=== PATIENT | male | born 1965 ===

== ENCOUNTER 2018-03-30 13:27 | Inpatient (IN) | payer OTHER ==
--- NOTE | 2018-03-30 16:02 | ED PDOC ---
Arrival/HPI - General Chief Complaint: Alcohol Ingestion Time Seen by Provider: 03/30/18 14:33 Historian: Patient - History of Present Illness Narrative History of Present Illness (Text): 03/30/18 15:15 A 47 year old Davey Macias, with unknown past medical history, brought by EMS to the emergency department for public intoxication. Limited HPI, ROS, and PE due to patient's intoxicated mental state. Past Medical History - Provider Review Nursing Documentation Reviewed: Yes - Infectious Disease Hx of Infectious Diseases: None - Psychiatric Hx Substance Use: No - Anesthesia Hx Anesthesia: No Family/Social History - Physician Review Nursing Documentation Reviewed: Yes Family/Social History: Unknown Family HX Smoking Status: Unknown If Ever Smoked Hx Alcohol Use: Yes Hx Substance Use: No Allergies/Home Meds Allergies/Adverse Reactions: Allergies Unobtainable Allergy (Verified 03/30/18 13:43) Review of Systems - Review of Systems Systems not reviewed;Unavailable: Intoxicated Physical Exam - Physical Exam Physical Exam Limitations: Intoxication Vital Signs Reviewed: Yes Vital Signs Temp Pulse Resp BP Pulse Ox 03/30/18 18:26 114 H 18 156/103 H 95 03/30/18 13:27 98.9 F 89 18 155/94 H 92 L Temperature: Afebrile Blood Pressure: Normal Pulse: Regular Respiratory Rate: Normal Appearance: Positive for: Other (intoxicated) Pain Distress: None Medical Decision Making ED Course and Treatment: 03/30/18 15:16 Impression: 47 year old male with intoxication. Plan: -- EKG -- Labs -- Fingerstick -- Geodon -- Reassess and disposition Progress Notes: 03/30/18 20:17 re-eval, patient is awake and alert, able to ambulate back and forth to the bathroom without assitance, is still clinically intoxicated, does not have any tremor. will continue to observe clinically 03/30/18 21:42 family/ at bedside ([phone]), reports that the patient is a chronic alcoholic and has been binge drinking, has a hx of htn and high blood sugar, she reports that the patient has hx of alcohol withdrawal. It is also noted, that the patient has become hypertensive and tachycardic during Ed course which raises the suspicion for alcohol withdrawal. 03/30/18 21:45 03/30/18 22:39 CIWA score approx 10 03/30/18 22:59 admit accepted by hospitalistm dr. carlson, patient to be admitted for alcoholwithdrawal, patient does not exhibit severe signs of withdrawal and appears stable for non-critical bed. - Lab Interpretations Lab Results: 03/30/18 21:55 03/30/18 21:55 Lab Results 03/30/18 21:55: Sodium 152 H, Chloride 105, Potassium 4.1, Carbon Dioxide 29, Anion Gap 22 H, BUN 8, Creatinine 0.7 L, Est GFR ( Amer) > 60, Est GFR ( Non-Af Amer) > 60, Random Glucose 117 H, Calcium 8.8, Magnesium 2.2, Total Bilirubin 0.4, AST 37, ALT 33, Alkaline Phosphatase 65, Total Protein 8.2, Albumin 4.9 H, Globulin 3.4, Albumin/Globulin Ratio 1.4 03/30/18 21:55: pO2 26 L, VBG pH 7.35, VBG pCO2 57.0, VBG HCO3 31.5 H, VBG Total CO2 33.2 H, VBG O2 Sat (Calc) 45.3, VBG Base Excess 4.3 H, VBG Potassium 3.9, Sodium 148.0, Chloride 105.0, Glucose 115 H, Lactate 3.7 H, FiO2 21.0, Venous Blood Potassium 3.9 03/30/18 21:55: WBC 6.2, RBC 5.71, Hgb 17.6, Hct 50.2, MCV 87.9, MCH 30.8, MCHC 35.1, RDW 14.4, Plt Count 215, MPV 8.6, Gran % 43.7 L, Lymph % (Auto) 49.4 H, [place] % (Auto) 5.8, Eos % (Auto) 0.5 L, Baso % (Auto) 0.6, Gran # 2.72, Lymph # ( Auto) 3.1, [place] # (Auto) 0.4, Eos # (Auto) 0.0, Baso # (Auto) 0.04 03/30/18 16:10: Alcohol, Quantitative 394 H* 03/30/18 15:49: POC Glucose (mg/dL) 87 I have reviewed the lab results: Yes - RAD Interpretation Radiology Orders: 03/30/18 22:12 HEAD W/O CONTRAST [CT] Stat - EKG Interpretation EKG Interpretation (Text): 03/30/18 16:10 1528: nsr at 89 bpm, nml qrs, nml axis, no acute sttw abn Interpreted by ED Physician: Yes - Medication Orders Current Medication Orders: Multivitamins/Vitamin C 10 ml/Thiamine HCl 100 mg/ Folic Acid 1 mg/ Sodium Chloride 1,011.2 mls @ 150 mls/hr IV .Q6H45M ONE Stop: 03/31/18 04:30 Last Admin: 03/30/18 22:40 Dose: 150 mls/hr eMAR Start Stop Document 03/30/18 22:40 IT (Rec: 03/30/18 22:40 [facility] [id number] Intravenous Solution Start Date 03/30/18 Start Time 22:40 Discontinued Medications Lorazepam (Ativan) 2 mg IVP ONCE ONE PRN Reason: Protocol Stop: 03/30/18 21:47 Last Admin: 03/30/18 22:13 Dose: 2 mg IVP Administration Document 03/30/18 22:13 IT (Rec: 03/30/18 22:13 IT [facility] [id number] Charges for Administration # of IVP Administrations 1 Ziprasidone (Geodon Inj) 10 mg IM STAT STA PRN Reason: Protocol Stop: 03/30/18 15:02 Last Admin: 03/30/18 15:27 Dose: 10 mg IM Administration Charges Document 03/30/18 15:27 SRE (Rec: 03/30/18 15:27 SRE [id number]) Injection Site MAR Injection Site Left Gluteus Tomas Charges for Administration # of IM Administrations 1 - Scribe Statement The provider has reviewed the documentation as recorded by the Linda Reyes Provider Scribe Provider Scribe Attestation: All medical record entries made by the Scribe were at my direction and personally dictated by me. I have reviewed the chart and agree that the record accurately reflects my personal performance of the history, physical exam, medical decision making, and the department course for this patient. I have also personally directed, reviewed, and agree with the discharge instructions and disposition. Disposition/Present on Arrival - Present on Arrival Any Indicators Present on Arrival: No History of DVT/PE: No History of Uncontrolled Diabetes: No Urinary Catheter: No History of Decub. Ulcer: No History Surgical Site Infection Following: None - Disposition Have Diagnosis and Disposition been Completed?: Yes Diagnosis: Alcohol withdrawal Disposition: HOSPITALIZED Disposition Time: 23:01 Patient Plan: Admission Condition: STABLE Referrals: Nan Ferris MD [Primary Care Provider] - Follow up with primary Forms: [employer] (Danish)
--- NOTE | 2018-03-30 21:27 | CARD ---
APPROVED REPORT Date of service: 03/30/2018 EKG Measurement Heart [id number] <Conclusion> Normal sinus rhythm Normal ECG
[2018-03-30] MEDS ORDERED: Multivitamin (MVI) 10 ML, Thiamine 100 MG, Folic Acid 1 MG in Sodium Chloride 0.9% 1,00... IV ONE (21:46)
[2018-03-30 22:05] LABS: BASO # 0.04 K/mm3 (0.0-2.0); BASO % 0.6 % (0.0-3.0); EOS % 0.5 % (1.5-5.0); GRAN # 2.72 (1.4-6.5); GRAN % 43.7 % (50.0-68.0); HEMOGLOBIN 17.6 g/dL (14.0-18.0); LYMPH # 3.1 (1.2-3.4); LYMPH % 49.4 % (22.0-35.0); MEAN CELL VOLUME 87.9 fl (80.0-105.0); MEAN CORPUSCULAR HEMOGLOBIN 30.8 pg (25.0-35.0); MEAN CORPUSCULAR HGB CONC 35.1 g/dl (31.0-37.0); MEAN PLATELET VOLUME 8.6 fl (7.0-11.0); MONO # 0.4 (0.1-0.6); MONO % 5.8 % (1.0-6.0); RBC 5.71 10^6/uL (3.5-6.1); RED CELL DISTRIBUTION WIDTH 14.4 % (11.5-14.5); WHITE BLOOD COUNT 6.2 10^3/ul (4.5-11.0)
[2018-03-30 22:07] LABS: VENOUS BLOOD GAS BASE EXCESS 4.3 mmol/L (0.0-2.0); VENOUS BLOOD GAS PO2 26 mm/Hg (30-55); VENOUS BLOOD PH 7.35 (7.32-7.43)
[2018-03-30 22:24] LABS: ALB/GLOB RATIO 1.4 (1.1-1.8); ALBUMIN 4.9 g/dL (3.0-4.8); ALT/SGPT 33 U/L (7-56); AST/SGOT 37 U/L (17-59); BLOOD UREA NITROGEN 8 mg/dL (7-21); CALCIUM 8.8 mg/dL (8.4-10.5); GFR NON-AFRICAN AMERICAN > 60
--- NOTE | 2018-03-30 23:33 | ED PDOC ---
Physical Exam Vital Signs Reviewed: Yes Vital Signs Temp Pulse Resp BP Pulse Ox 03/30/18 18:26 114 H 18 156/103 H 95 03/30/18 13:27 98.9 F 89 18 155/94 H 92 L Temperature: Afebrile Blood Pressure: Normal Pulse: Regular Respiratory Rate: Normal Appearance: Positive for: Well-Appearing, Non-Toxic, Comfortable Pain Distress: None Mental Status: Positive for: Alert and Oriented X 3 Medical Decision Making ED Course and Treatment: 03/30/18 23:32 Admitted under hospitalist for alcohol withdrawal, Banana bag. Pending CT Head. - Lab Interpretations Lab Results: 03/30/18 21:55 03/30/18 21:55 Lab Results 03/30/18 21:55: Sodium 152 H, Chloride 105, Potassium 4.1, Carbon Dioxide 29, Anion Gap 22 H, BUN 8, Creatinine 0.7 L, Est GFR ( Amer) > 60, Est GFR ( Non-Af Amer) > 60, Random Glucose 117 H, Calcium 8.8, Magnesium 2.2, Total Bilirubin 0.4, AST 37, ALT 33, Alkaline Phosphatase 65, Total Protein 8.2, Albumin 4.9 H, Globulin 3.4, Albumin/Globulin Ratio 1.4 03/30/18 21:55: pO2 26 L, VBG pH 7.35, VBG pCO2 57.0, VBG HCO3 31.5 H, VBG Total CO2 33.2 H, VBG O2 Sat (Calc) 45.3, VBG Base Excess 4.3 H, VBG Potassium 3.9, Sodium 148.0, Chloride 105.0, Glucose 115 H, Lactate 3.7 H, FiO2 21.0, Venous Blood Potassium 3.9 03/30/18 21:55: WBC 6.2, RBC 5.71, Hgb 17.6, Hct 50.2, MCV 87.9, MCH 30.8, MCHC 35.1, RDW 14.4, Plt Count 215, MPV 8.6, Gran % 43.7 L, Lymph % (Auto) 49.4 H, [place] % (Auto) 5.8, Eos % (Auto) 0.5 L, Baso % (Auto) 0.6, Gran # 2.72, Lymph # ( Auto) 3.1, [place] # (Auto) 0.4, Eos # (Auto) 0.0, Baso # (Auto) 0.04 03/30/18 16:10: Alcohol, Quantitative 394 H* 03/30/18 15:49: POC Glucose (mg/dL) 87 - RAD Interpretation Radiology Orders: 03/30/18 22:12 HEAD W/O CONTRAST [CT] Stat - Medication Orders Current Medication Orders: Multivitamins/Vitamin C 10 ml/Thiamine HCl 100 mg/ Folic Acid 1 mg/ Sodium Chloride 1,011.2 mls @ 150 mls/hr IV .Q6H45M ONE Stop: 03/31/18 04:30 Last Admin: 03/30/18 22:40 Dose: 150 mls/hr eMAR Start Stop Document 03/30/18 22:40 IT (Rec: 03/30/18 22:40 IT [facility] [id number] Intravenous Solution Start Date 03/30/18 Start Time 22:40 Discontinued Medications Lorazepam (Ativan) 2 mg IVP ONCE ONE PRN Reason: Protocol Stop: 03/30/18 21:47 Last Admin: 03/30/18 22:13 Dose: 2 mg IVP Administration Document 03/30/18 22:13 IT (Rec: 03/30/18 22:13 IT [facility] [id number] Charges for Administration # of IVP Administrations 1 Ziprasidone (Geodon Inj) 10 mg IM STAT STA PRN Reason: Protocol Stop: 03/30/18 15:02 Last Admin: 03/30/18 15:27 Dose: 10 mg IM Administration Charges Document 03/30/18 15:27 SRE (Rec: 03/30/18 15:27 SRE [id number]) Injection Site MAR Injection Site Left Gluteus Tomas Charges for Administration # of IM Administrations 1 - Scribe Statement The provider has reviewed the documentation as recorded by the Scribe Hussain Marcelo All medical record entries made by the Scribe were at my direction and personally dictated by me. I have reviewed the chart and agree that the record accurately reflects my personal performance of the history, physical exam, medical decision making, and the department course for this patient. I have also personally directed, reviewed, and agree with the discharge instructions and disposition. Disposition/Present on Arrival - Present on Arrival Any Indicators Present on Arrival: No History of DVT/PE: No History of Uncontrolled Diabetes: No Urinary Catheter: No History of Decub. Ulcer: No History Surgical Site Infection Following: None - Disposition Diagnosis: Alcohol withdrawal Disposition: HOSPITALIZED Patient Problems: Current Active Problems Problem Status Onset Alcohol withdrawal Acute Condition: STABLE
--- NOTE | 2018-03-30 23:41 | ED PDOC ---
Physical Exam Vital Signs Reviewed: Yes Vital Signs Temp Pulse Resp BP Pulse Ox 03/30/18 23:36 79 17 131/79 99 03/30/18 18:26 114 H 18 156/103 H 95 03/30/18 13:27 98.9 F 89 18 155/94 H 92 L Temperature: Afebrile Blood Pressure: Normal Pulse: Regular Respiratory Rate: Normal Appearance: Positive for: Well-Appearing, Non-Toxic, Comfortable Pain Distress: None Mental Status: Positive for: Alert and Oriented X 3 Medical Decision Making ED Course and Treatment: 03/30/18 23:40 Admitted under hospitalist for alcohol withdrawal, Banana Bag. Pending CT head. - Lab Interpretations Lab Results: 03/30/18 21:55 03/30/18 21:55 Lab Results 03/30/18 21:55: Sodium 152 H, Chloride 105, Potassium 4.1, Carbon Dioxide 29, Anion Gap 22 H, BUN 8, Creatinine 0.7 L, Est GFR ( Amer) > 60, Est GFR ( Non-Af Amer) > 60, Random Glucose 117 H, Calcium 8.8, Magnesium 2.2, Total Bilirubin 0.4, AST 37, ALT 33, Alkaline Phosphatase 65, Total Protein 8.2, Albumin 4.9 H, Globulin 3.4, Albumin/Globulin Ratio 1.4 03/30/18 21:55: pO2 26 L, VBG pH 7.35, VBG pCO2 57.0, VBG HCO3 31.5 H, VBG Total CO2 33.2 H, VBG O2 Sat (Calc) 45.3, VBG Base Excess 4.3 H, VBG Potassium 3.9, Sodium 148.0, Chloride 105.0, Glucose 115 H, Lactate 3.7 H, FiO2 21.0, Venous Blood Potassium 3.9 03/30/18 21:55: WBC 6.2, RBC 5.71, Hgb 17.6, Hct 50.2, MCV 87.9, MCH 30.8, MCHC 35.1, RDW 14.4, Plt Count 215, MPV 8.6, Gran % 43.7 L, Lymph % (Auto) 49.4 H, [place] % (Auto) 5.8, Eos % (Auto) 0.5 L, Baso % (Auto) 0.6, Gran # 2.72, Lymph # ( Auto) 3.1, [place] # (Auto) 0.4, Eos # (Auto) 0.0, Baso # (Auto) 0.04 03/30/18 16:10: Alcohol, Quantitative 394 H* 03/30/18 15:49: POC Glucose (mg/dL) 87 - RAD Interpretation Radiology Orders: 03/30/18 22:12 HEAD W/O CONTRAST [CT] Stat - Medication Orders Current Medication Orders: Multivitamins/Vitamin C 10 ml/Thiamine HCl 100 mg/ Folic Acid 1 mg/ Sodium Chloride 1,011.2 mls @ 150 mls/hr IV .Q6H45M ONE Stop: 03/31/18 04:30 Last Admin: 03/30/18 22:40 Dose: 150 mls/hr eMAR Start Stop Document 03/30/18 22:40 IT (Rec: 03/30/18 22:40 IT [facility] [id number]) Intravenous Solution Start Date 03/30/18 Start Time 22:40 Discontinued Medications Lorazepam (Ativan) 2 mg IVP ONCE ONE PRN Reason: Protocol Stop: 03/30/18 21:47 Last Admin: 03/30/18 22:13 Dose: 2 mg IVP Administration Document 03/30/18 22:13 IT (Rec: 03/30/18 22:13 IT [facility] [id number]) Charges for Administration # of IVP Administrations 1 Ziprasidone (Geodon Inj) 10 mg IM STAT STA PRN Reason: Protocol Stop: 03/30/18 15:02 Last Admin: 03/30/18 15:27 Dose: 10 mg IM Administration Charges Document 03/30/18 15:27 SRE (Rec: 03/30/18 15:27 SRE [id number]) Injection Site MAR Injection Site Left Gluteus Tomas Charges for Administration # of IM Administrations 1 - Scribe Statement The provider has reviewed the documentation as recorded by the Scribe Hussain Marcelo All medical record entries made by the Scribe were at my direction and personally dictated by me. I have reviewed the chart and agree that the record accurately reflects my personal performance of the history, physical exam, medical decision making, and the department course for this patient. I have also personally directed, reviewed, and agree with the discharge instructions and disposition. Disposition/Present on Arrival - Present on Arrival Any Indicators Present on Arrival: No History of DVT/PE: No History of Uncontrolled Diabetes: No Urinary Catheter: No History of Decub. Ulcer: No History Surgical Site Infection Following: None - Disposition Diagnosis: Alcohol withdrawal Disposition: HOSPITALIZED Patient Problems: Current Active Problems Problem Status Onset Alcohol withdrawal Acute Condition: STABLE
--- NOTE | 2018-03-31 01:53 | CP.PCM.HP ---
<Yvonne Mayberry - Last Filed: 03/31/18 04:34> History of Present Illness - History of Present Illness History of Present Illness: PGY-[address] Jernigan Mr Johnston, 53M, was brought by EMS to the emergency department for public intoxication. Patient was in intoxicated mental state during interview. He is cooperative but gave very short answers. He binge-drinks every 2 weeks, or more frequently if stressful at work. 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 He is able to bear weight and walk to ED bathroom without assistance. He denies hx fall, weakness, numbness, CP, dizziness. Per ED record, of patient report that pt is a chronic alcoholic and has been binge drinking, has a hx of htn and high blood sugar. His RITA was in 394 at 5pm. patient has become hypertensive 150s and tachycardic of 110s at 6pm in the ED. CIWA score approx 10. He was given Ativan 2mg x 1 and Geodon 10 IM x 1. His CBC was unremarkable. Lactate was 3.7. Na 152. ROS - (+) Right knee pain denies F/C, GRAHAM, chest pain, abdominal pain N/V/D/C, dysuria PMD: Dr Medley, [facility], [place] PMH: HTN, hyperglycemia PSH: denies FH: DM2 and HTN SH: Smoker 1-2 cigarrettes a day. ETOH (binge drinking). Denies drug Live with ([phone]) and children. All: None Med: "just BP med" Present on Admission - Present on Admission Any Indicators Present on Admission: No Past Patient History - Infectious Disease Hx of Infectious Diseases: None - Past Social History Smoking Status: Unknown If Ever Smoked - PSYCHIATRIC Hx Substance Use: No - ANESTHESIA Hx Anesthesia: No Meds Allergies/Adverse Reactions: Allergies Allergy/AdvReac Type Severity Reaction Status Date / Time Unobtainable Allergy Verified 03/30/18 13:43 Physical Exam - Constitutional Appears: No Acute Distress - Head Exam Head Exam: ATRAUMATIC, NORMAL INSPECTION, NORMOCEPHALIC - Eye Exam Eye Exam: EOMI, Normal appearance, PERRL. absent: Scleral icterus Pupil Exam: NORMAL ACCOMODATION - ENT Exam ENT Exam: Mucous Membranes Dry - Neck Exam Additional comments: supple, no jvd - Respiratory Exam Respiratory Exam: Clear to Auscultation Bilateral, NORMAL BREATHING PATTERN. absent: Rales, Rhonchi, Wheezes - Cardiovascular Exam Cardiovascular Exam: REGULAR RHYTHM, +S1, +S2. absent: Systolic Murmur - GI/Abdominal Exam GI & Abdominal Exam: Normal Bowel Sounds, Soft. absent: Distended, Firm, Rebound, Rigid, Tenderness - Extremities Exam Extremities exam: Positive for: pedal pulses present. Negative for: calf tenderness, pedal edema Additional comments: Soft, tender, swelling of R knee noted. No erythema but increased warmth noted. no erythema. range of motion normal. Joint effusion noted. painful when palpate - Back Exam Back exam: absent: CVA tenderness (L), CVA tenderness (R), paraspinal tenderness , vertebral tenderness - Neurological Exam Neurological exam: Alert, CN II-XII Intact, Oriented x3 Additional comments: No tremors noted No slurred speech move all extremities equally sensory grossly intact - Psychiatric Exam Psychiatric exam: Normal Affect, Normal Mood - Skin Skin Exam: Dry, Warm Results - Vital Signs Recent Vital Signs: Last Vital Signs Temp 98.9 F 03/30/18 13:27 Pulse 79 03/30/18 23:36 Resp 17 03/30/18 23:36 BP 131/79 03/30/18 23:36 Pulse Ox 99 03/30/18 23:36 - Labs Result Diagrams: 03/30/18 21:55 03/30/18 21:55 Assessment & Plan - Assessment and Plan (Free Text) Plan: Mr Johnston, 53M, was brought by EMS for public intoxication. His RITA was in 394 at 5pm. At 6pm, patient became hypertensive, SBP in 150s, and was tachycardic, HR in 110s. These findings were likely due to alcohol withdrawal. On exam, he was found to have a swollen R knee that was ongoing x 2 weeks. He is able to bear weight and walk to ED bathroom without assistance. His CBC was unremarkable. Lactate was 3.7. Na 152. EKG showed NSR 80s, no QT prolongation. CT head showed foreign object in R frontal scape. No fracture. Alcohol withdrawal ETOH abuse - [place] protocol. Librium 10q6 [place]. Ativan 2q3 PRN - counseling center manager for ETOH cessation. Suggest AA meeting as outpatient Hypernatremia, likely dehydration - Pt was given banana bag in NS in the ED - banana bag in D5W - check BMP in AM R knee pain with swelling - x-ray to r/o fracture - ortho consult [place] object - No signs of trauma/infection. No focal neural deficit. No visual compliant. Continue to observe for now Elevated lactate, likely secondary to alcohol induced lactic acidosis. No signs of infection or hypoperfusion - observe for now - continue to trend lactate. repeat level down to 2.8 at 2AM Hx HTN. - BP stable at this time. Continute to monitor Hx hyperglycemia - A1C - ISSS, ACCU ACHS Tobacco abuse - nicoderm patch - advise cessation of smoking Prophylaxis - protonix, heparin s/r/d/w Dr Jernigan <Clotilde Jernigan - Last Filed: 03/31/18 09:43> Results - Vital Signs Recent Vital Signs: Last Vital Signs Temp 98.6 F 03/31/18 06:00 Pulse 94 H 03/31/18 06:00 Resp 17 03/31/18 06:00 BP 150/110 H 03/31/18 06:00 Pulse Ox 98 03/31/18 06:00 - Labs Result Diagrams: 03/31/18 06:00 03/31/18 06:00 Labs: Laboratory Results - last 24 hr 03/31/18 03/31/18 03/31/18 01:40 06:00 06:00 WBC 6.4 RBC 5.42 Hgb 16.1 Hct 47.5 MCV 87.6 MCH 29.7 MCHC 33.9 RDW 14.4 Plt Count 222 MPV 8.6 Gran % 36.4 L Lymph % (Auto) 51.7 H [place] % (Auto) 8.7 H Eos % (Auto) 2.7 Baso % (Auto) 0.5 Gran # 2.32 Lymph # (Auto) 3.3 [place] # (Auto) 0.6 Eos # (Auto) 0.2 Baso # (Auto) 0.03 pO2 133 H VBG pH 7.39 VBG pCO2 47.0 VBG HCO3 28.5 H VBG Total CO2 29.9 H VBG O2 Sat (Calc) 98.3 H VBG Base Excess 2.8 H VBG Potassium 3.2 L Sodium 143.0 144 Chloride 106.0 104 Glucose 121 H Lactate 2.8 H FiO2 21.0 Potassium 3.4 L Carbon Dioxide 27 Anion Gap 16 BUN 7 Creatinine 0.5 L Est GFR ( Amer) > 60 Est GFR (Non-Af Amer) > 60 Random Glucose 94 Calcium 8.0 L Phosphorus 2.9 Magnesium 1.9 Total Bilirubin 0.4 AST 33 ALT 36 Alkaline Phosphatase 60 Total Protein 7.2 Albumin 4.3 Globulin 2.9 Albumin/Globulin Ratio 1.5 Venous Blood Potassium 3.2 L Attending/Attestation - Attestation I have personally seen and examined this patient.: Yes I have fully participated in the care of the patient.: Yes I have reviewed all pertinent clinical information: Yes Notes (Text): 03/31/18 09:38 Note: Examination of the neck:No thyromegaly,no adenopathy,trachea is in the midline. Pt seen with the resident by the bedside. Agree with documentation.assessment and plan of treatment
[2018-03-31 02:14] LABS: VENOUS BLOOD GAS BASE EXCESS 2.8 mmol/L (0.0-2.0); VENOUS BLOOD GAS PO2 133 mm/Hg (30-55); VENOUS BLOOD PH 7.39 (7.32-7.43)
[2018-03-31 03:51] VITALS: BMI 12.7
[2018-03-31] MEDS ORDERED: Folic Acid 1 MG, Thiamine 100 MG, Multivitamin (MVI) 10 ML in Dextrose 5% In Water 1,00... IV SCH (05:00)
[2018-03-31] MEDS: Pantoprazole 40 mg EC Tab PO SCH (05:36)
[2018-03-31 06:55] LABS: ALB/GLOB RATIO 1.5 (1.1-1.8); ALBUMIN 4.3 g/dL (3.0-4.8); ALT/SGPT 36 U/L (7-56); AST/SGOT 33 U/L (17-59); BLOOD UREA NITROGEN 7 mg/dL (7-21); GFR NON-AFRICAN AMERICAN > 60
[2018-03-31 07:14] LABS: BASO # 0.03 K/mm3 (0.0-2.0); BASO % 0.5 % (0.0-3.0); EOS # 0.2 (0.0-0.7); EOS % 2.7 % (1.5-5.0); GRAN # 2.32 (1.4-6.5); GRAN % 36.4 % (50.0-68.0); HEMOGLOBIN 16.1 g/dL (14.0-18.0); LYMPH # 3.3 (1.2-3.4); LYMPH % 51.7 % (22.0-35.0); MEAN CELL VOLUME 87.6 fl (80.0-105.0); MEAN CORPUSCULAR HEMOGLOBIN 29.7 pg (25.0-35.0); MEAN CORPUSCULAR HGB CONC 33.9 g/dl (31.0-37.0); MEAN PLATELET VOLUME 8.6 fl (7.0-11.0); MONO # 0.6 (0.1-0.6); MONO % 8.7 % (1.0-6.0); RBC 5.42 10^6/uL (3.5-6.1); RED CELL DISTRIBUTION WIDTH 14.4 % (11.5-14.5); WHITE BLOOD COUNT 6.4 10^3/ul (4.5-11.0)
--- NOTE | 2018-03-31 08:55 | CP.PCM.CON ---
History of Present Illness - History of Present Illness History of Present Illness: Orthopedic consultation Dr. Murillo (Dr. Haritha penaloza) 53M complains of right knee pain x 2 weeks since slip and fall onto left knee. He says he had a lot of swelling in the front of his knee but it is getting better, and the swelling is going down. He is able to walk without pain, no pain when he bends his knee. He denies any drainage, fever/chills. No instability or giving way to knee. No clicking or catching. No right knee pain prior to this injury. Patient admitted for ETOH intoxication. Denies pain in other extremities. Denies numbness/tingling, cp/sob/dizziness. n/v. Eating breakfast, at bedside. Review of Systems - Review of Systems All systems: reviewed and no additional remarkable complaints except - Constitutional Constitutional: As Per HPI - Cardiovascular Cardiovascular: As Per HPI - Respiratory Respiratory: As Per HPI - Gastrointestinal Gastrointestinal: As Per HPI - Genitourinary Genitourinary: As Per HPI - Musculoskeletal Musculoskeletal: As Per HPI - Integumentary Integumentary: As Per HPI - Neurological Neurological: As Per HPI - Hematologic/Lymphatic Hematologic: absent: As Per HPI, Easy Bleeding, Easy Bruising, Lymphadenopathy, Other Past Patient History - Infectious Disease Hx of Infectious Diseases: None - Past Medical History & Family History Past Medical History?: Yes Past Family History: Reviewed and not pertinent - Past Social History Smoking Status: Light Smoker < 10 Cigarettes Daily Alcohol: > 2 Drinks/Day - CARDIAC Hx Hypertension: Yes - MUSCULOSKELETAL/RHEUMATOLOGICAL Hx Falls: No - PSYCHIATRIC Hx Substance Use: No - ANESTHESIA Hx Anesthesia: No Meds Allergies/Adverse Reactions: Allergies Allergy/AdvReac Type Severity Reaction Status Date / Time Unobtainable Allergy Verified 03/30/18 13:43 - Medications Medications: Current Medications Chlordiazepoxide (Librium) 10 mg PO Q6 [place] PRN Reason: Protocol Last Admin: 03/31/18 05:36 Dose: 10 mg Heparin Sodium (Porcine) (Heparin) 5,000 units SC Q8 [facility] PRN Reason: Protocol Last Admin: 03/31/18 05:37 Dose: 5,000 units Folic Acid 1 mg/ Thiamine HCl 100 mg/ Multivitamins/Vitamin C 10 ml/ Dextrose 1 ,011.2 mls @ 100 mls/hr IV .Q10H7M [facility] Last Admin: 03/31/18 06:45 Dose: 100 mls/hr Insulin Human Regular (Humulin R Low) 0 units SC ACHS [facility] PRN Reason: Protocol Lorazepam (Ativan) 2 mg IVP Q3H PRN; Protocol PRN Reason: Agitation Nicotine (Nicoderm Cq) 1 patch TD DAILY [facility] Pantoprazole Sodium (Protonix Ec Tab) 40 mg PO 0600 [facility] Last Admin: 03/31/18 05:36 Dose: 40 mg Physical Exam - Constitutional Appears: Well, No Acute Distress - Head Exam Head Exam: ATRAUMATIC - Neck Exam Neck exam: Positive for: Full Rom, Normal Inspection - Respiratory Exam Respiratory Exam: NORMAL BREATHING PATTERN - Cardiovascular Exam Additional comments: +DP/PT pulses - Expanded Lower Extremities Exam Right Hip exam: full ROM, normal inspection Knee exam: full ROM (no pain with full AROM, negative casimiro/varus/valgus/ant/ post drawer/mcmurrays), swelling (noted prepatellar swelling, non tender, not warm, no erythema, skin intact, slightly boggy, not fluctuant) Ankle exam: FULL ROM, NORMAL INSPECTION Neuro vacular tendon exam: no vascular compromise - Neurological Exam Neurological exam: Alert, Oriented x3 - Psychiatric Exam Psychiatric exam: Depressed, Normal Affect - Skin Skin Exam: Dry, Intact, Normal Color, Warm Results - Vital Signs Recent Vital Signs: Last Vital Signs Temp 98.6 F 03/31/18 06:00 Pulse 94 H 03/31/18 06:00 Resp 17 03/31/18 06:00 BP 150/110 H 03/31/18 06:00 Pulse Ox 98 03/31/18 06:00 - Labs Result Diagrams: 03/31/18 06:00 03/31/18 06:00 Labs: Laboratory Results - last 24 hr 03/31/18 03/31/18 03/31/18 01:40 06:00 06:00 WBC 6.4 RBC 5.42 Hgb 16.1 Hct 47.5 MCV 87.6 MCH 29.7 MCHC 33.9 RDW 14.4 Plt Count 222 MPV 8.6 Gran % 36.4 L Lymph % (Auto) 51.7 H [place] % (Auto) 8.7 H Eos % (Auto) 2.7 Baso % (Auto) 0.5 Gran # 2.32 Lymph # (Auto) 3.3 [place] # (Auto) 0.6 Eos # (Auto) 0.2 Baso # (Auto) 0.03 pO2 133 H VBG pH 7.39 VBG pCO2 47.0 VBG HCO3 28.5 H VBG Total CO2 29.9 H VBG O2 Sat (Calc) 98.3 H VBG Base Excess 2.8 H VBG Potassium 3.2 L Sodium 143.0 144 Chloride 106.0 104 Glucose 121 H Lactate 2.8 H FiO2 21.0 Potassium 3.4 L Carbon Dioxide 27 Anion Gap 16 BUN 7 Creatinine 0.5 L Est GFR ( Amer) > 60 Est GFR (Non-Af Amer) > 60 Random Glucose 94 Calcium 8.0 L Phosphorus 2.9 Magnesium 1.9 Total Bilirubin 0.4 AST 33 ALT 36 Alkaline Phosphatase 60 Total Protein 7.2 Albumin 4.3 Globulin 2.9 Albumin/Globulin Ratio 1.5 Venous Blood Potassium 3.2 L - Impressions Impression: Right knee AP/lat/sunrise xrays: no fracture appreciated, no dislocation. No degenerative joint disease. Noted moderate soft tissue swelling anterior to patella. Assessment & Plan (1) Prepatellar bursitis, right knee Assessment and Plan: no evidence of sepsis improving swelling as per patient no orthopedic intervention indicated at this time patient can follow up as outpatient to monitor improvement [phone] WBAT RLE VTE proph, encourage OOB Advised patient to call for any increased swelling/pain/fever/chills/redness as may indicate infection d/w Dr Mg, agrees with above Status: Acute
--- NOTE | 2018-03-31 08:58 | CT ---
Date of service: 03/30/2018 PROCEDURE: CT HEAD WITHOUT CONTRAST. HISTORY: altered mentation COMPARISON: None available. TECHNIQUE: Axial computed tomography images were obtained through the head/brain without intravenous contrast. Radiation dose: Total exam DLP = 879.77 mGy-cm. This CT exam was performed using one or more of the following dose reduction techniques: Automated exposure control, adjustment of the mA and/or kV according to patient size, and/or use of iterative reconstruction technique. FINDINGS: HEMORRHAGE: No intracranial hemorrhage. BRAIN: No mass effect or edema. Mild diffuse atrophy. No evidence of acute infarct. VENTRICLES: Unremarkable. No hydrocephalus. CALVARIUM: No fracture. There is a metallic radiopaque foreign body in the right frontal subcutaneous soft tissues. There is a high right parietal vertex scalp contusion. PARANASAL SINUSES: Unremarkable as visualized. No significant inflammatory changes. MASTOID AIR CELLS: Unremarkable as visualized. No inflammatory changes. OTHER FINDINGS: None. IMPRESSION: No intracranial mass, hemorrhage or evidence of acute infarct. Mild atrophy. Radiopaque foreign body in the right frontal subcutaneous soft tissues. Right high parietal vertex scalp contusion. The preliminary findings for this examination were reported by [facility] at 12:20 a.m. on 03/31/2018. There is concurrence of this report with the preliminary findings.
[2018-03-31] MEDS ORDERED: Potassium Chloride 40 mEq/30 ml LIQ UD PO ONE (09:01)
[2018-03-31] MEDS ORDERED: Magnesium Sulfate 2 gm/50 ml 2 GM/50 ML BAG IVPB ONE (09:01)
[2018-03-31] MEDS ORDERED: Labetalol 5 mg/ml Inj 20ML IV ONE (09:25)
[2018-03-31] MEDS: Insulin Reg-LOW-Coverage SC SCH ×4 (10:12→21:26)
--- NOTE | 2018-03-31 11:45 | RAD ---
Date of service: 03/31/2018 PROCEDURE: Right Knee Radiographs. HISTORY: knee pain COMPARISON: None. FINDINGS: BONES: Normal. No fracture. JOINTS: Normal. No osteoarthritis. JOINT EFFUSION: None. OTHER FINDINGS: Prepatellar soft tissue swelling consistent with prepatellar bursitis. IMPRESSION: Findings consistent with prepatellar bursitis. No additional abnormality.
[2018-03-31] MEDS ORDERED: Folic Acid 1 MG, Thiamine 100 MG, Multivitamin (MVI) 10 ML in Sodium Chloride 0.9% 1,00... IV SCH (12:31)
--- NOTE | 2018-03-31 15:38 | CARD ---
APPROVED REPORT Date of service: 03/30/2018 EKG Measurement Heart [id number] <Conclusion> Normal sinus rhythm Normal ECG
[2018-03-31] MEDS: Folic Acid 1 MG, Thiamine 100 MG, Multivitamin (MVI) 10 ML in Sodium Chloride 0.9% 1,00... IV SCH ×2 (18:10→22:48)
[2018-04-01] MEDS: Folic Acid 1 MG, Thiamine 100 MG, Multivitamin (MVI) 10 ML in Sodium Chloride 0.9% 1,00... IV SCH ×2 (05:41→10:02)
[2018-04-01] MEDS: Pantoprazole 40 mg EC Tab PO SCH (05:42)
[2018-04-01 06:12] VITALS: O2SAT 99
[2018-04-01 06:21] LABS: BASO # 0.02 K/mm3 (0.0-2.0); BASO % 0.3 % (0.0-3.0); EOS # 0.2 (0.0-0.7); EOS % 2.8 % (1.5-5.0); GRAN # 2.3 (1.4-6.5); GRAN % 35.3 % (50.0-68.0); HEMOGLOBIN 16.2 g/dL (14.0-18.0); LYMPH # 3.3 (1.2-3.4); LYMPH % 50.5 % (22.0-35.0); MEAN CELL VOLUME 87.5 fl (80.0-105.0); MEAN CORPUSCULAR HEMOGLOBIN 29.9 pg (25.0-35.0); MEAN CORPUSCULAR HGB CONC 34.2 g/dl (31.0-37.0); MEAN PLATELET VOLUME 8.7 fl (7.0-11.0); MONO # 0.7 (0.1-0.6); MONO % 11.1 % (1.0-6.0); RBC 5.42 10^6/uL (3.5-6.1); RED CELL DISTRIBUTION WIDTH 14.1 % (11.5-14.5); WHITE BLOOD COUNT 6.5 10^3/ul (4.5-11.0)
[2018-04-01 07:31] LABS: ALB/GLOB RATIO 1.4 (1.1-1.8); ALBUMIN 4.1 g/dL (3.0-4.8); ALT/SGPT 30 U/L (7-56); AST/SGOT 30 U/L (17-59); BLOOD UREA NITROGEN 5 mg/dL (7-21); CALCIUM 10.7 mg/dL (8.4-10.5); GFR NON-AFRICAN AMERICAN > 60
[2018-04-01] MEDS: Insulin Reg-LOW-Coverage SC SCH ×2 (08:28→11:33)
--- NOTE | 2018-04-01 13:34 | CP.PCM.PN ---
Subjective - Date & Time of Evaluation Date of Evaluation: 04/01/18 Time of Evaluation: 13:30 - Subjective Subjective: Patient seen and examined at bedside comfortable. He has no complaints of pain currently, pain is significantly improved compared to last week. He denies CP/ SOB/N/V/D/fever/dizziness. Objective - Vital Signs/Intake and Output Vital Signs (last 24 hours): Temp Pulse Resp BP Pulse Ox 98.1 F 78 19 155/112 H 99 04/01/18 06:00 04/01/18 10:00 04/01/18 06:00 04/01/18 10:39 04/01/18 06:00 Intake and Output: 04/01/18 04/01/18 06:59 18:59 Intake Total 1540 Output Total 300 Balance 1240 - Medications Medications: Current Medications Amlodipine Besylate (Norvasc) 7.5 mg PO DAILY [facility] Last Admin: 04/01/18 10:39 Dose: 7.5 mg Chlordiazepoxide (Librium) 5 mg PO Q6 [place] PRN Reason: Protocol Stop: 04/01/18 18:01 Last Admin: 04/01/18 12:22 Dose: 5 mg Folic Acid (Folic Acid) 1 mg PO DAILY [facility] Heparin Sodium (Porcine) (Heparin) 5,000 units SC Q8 [place] PRN Reason: Protocol Last Admin: 04/01/18 05:42 Dose: 5,000 units Folic Acid 1 mg/ Thiamine HCl 100 mg/ Multivitamins/Vitamin C 10 ml/ Sodium Chloride 1,011.2 mls @ 100 mls/hr IV .Q10H7M [facility] Stop: 04/01/18 19:09 Last Admin: 04/01/18 10:02 Dose: Not Given Insulin Human Regular (Humulin R Low) 0 units SC ACHS [facility] PRN Reason: Protocol Last Admin: 04/01/18 11:33 Dose: Not Given Lisinopril (Zestril) 20 mg PO DAILY [facility] Last Admin: 04/01/18 10:35 Dose: 20 mg Lorazepam (Ativan) 2 mg IVP Q3H PRN; Protocol PRN Reason: Agitation Multivitamins (Thera Tab) 1 tab PO DAILY [facility] Nicotine (Nicoderm Cq) 1 patch TD DAILY [facility] Last Admin: 04/01/18 10:39 Dose: 1 patch Pantoprazole Sodium (Protonix Ec Tab) 40 mg PO 0600 [facility] Last Admin: 04/01/18 05:42 Dose: 40 mg Thiamine HCl (Vitamin B1 Tab) 100 mg PO DAILY [facility] - Labs Labs: 04/01/18 05:20 04/01/18 05:20 - Extremities Exam Additional comments: R knee: + large boggy mass at prepatellar area, no tenderness to palpation, no erythema, no lesions ROM: 0-120 degrees without pain sensation intact SP/DP/TN motor intact EHL/FHL/TA/G pedal pulses intact comps soft NT Assessment and Plan (1) Prepatellar bursitis, right knee Assessment & Plan: -conservative management -PT/OT WBAT -ice and compression as needed -NSAID's for pain -orthopedically stable -patient instructed to visit Dr. Mg's office if symptoms worsen -please reconsult as needed -above d/w Dr. Mg in agreement Status: Acute
[2018-04-01 13:46] VITALS: BP 166/111
[2018-04-01 14:19] VITALS: RESP 18; TEMP 98.3
[2018-04-01 19:15] VITALS: PULSE 91
--- NOTE | 2018-04-02 06:30 | CP.PCM.DIS ---
Provider - Provider Date of Admission: 03/30/18 23:01 Attending physician: Sergio Husain MD Primary care physician: Nan Ferris MD Consults: Michael Mg Time Spent in preparation of Discharge (in minutes): 45 Hospital Course - Lab Results Lab Results: Most Recent Lab Values WBC 6.5 10^3/ul (4.5-11.0) 04/01/18 05:20 RBC 5.42 10^6/uL (3.5-6.1) 04/01/18 05:20 Hgb 16.2 g/dL (14.0-18.0) 04/01/18 05:20 Hct 47.4 % (42.0-52.0) 04/01/18 05:20 MCV 87.5 fl (80.0-105.0) 04/01/18 05:20 MCH 29.9 pg (25.0-35.0) 04/01/18 05:20 MCHC 34.2 g/dl (31.0-37.0) 04/01/18 05:20 RDW 14.1 % (11.5-14.5) 04/01/18 05:20 Plt Count 209 10^3/uL (120.0-450.0) 04/01/18 05:20 MPV 8.7 fl (7.0-11.0) 04/01/18 05:20 Gran % 35.3 % (50.0-68.0) L 04/01/18 05:20 Lymph % (Auto) 50.5 % (22.0-35.0) H 04/01/18 05:20 [place] % (Auto) 11.1 % (1.0-6.0) H 04/01/18 05:20 Eos % (Auto) 2.8 % (1.5-5.0) 04/01/18 05:20 Baso % (Auto) 0.3 % (0.0-3.0) 04/01/18 05:20 Gran # 2.30 (1.4-6.5) 04/01/18 05:20 Lymph # (Auto) 3.3 (1.2-3.4) 04/01/18 05:20 [place] # (Auto) 0.7 (0.1-0.6) H 04/01/18 05:20 Eos # (Auto) 0.2 (0.0-0.7) 04/01/18 05:20 Baso # (Auto) 0.02 K/mm3 (0.0-2.0) 04/01/18 05:20 pO2 133 mm/Hg (30-55) H 03/31/18 01:40 VBG pH 7.39 (7.32-7.43) 03/31/18 01:40 VBG pCO2 47.0 (40-60) 03/31/18 01:40 VBG HCO3 28.5 mmol/l (21-28) H 03/31/18 01:40 VBG Total CO2 29.9 mmol.L (22-28) H 03/31/18 01:40 VBG O2 Sat (Calc) 98.3 % (40-65) H 03/31/18 01:40 VBG Base Excess 2.8 mmol/L (0.0-2.0) H 03/31/18 01:40 VBG Potassium 3.2 mmol/L (3.6-5.2) L 03/31/18 01:40 Sodium 143.0 mmol/L (132-148) 03/31/18 01:40 Chloride 106.0 mmol/L (98-107) 03/31/18 01:40 Glucose 121 mg/dl (75-110) H 03/31/18 01:40 Lactate 2.8 mmol/L (0.7-2.1) H 03/31/18 01:40 FiO2 21.0 % 03/31/18 01:40 Sodium 140 mmol/L (132-148) 04/01/18 05:20 Potassium 3.7 mmol/L (3.6-5.0) 04/01/18 05:20 Chloride 101 mmol/L (98-107) 04/01/18 05:20 Carbon Dioxide 28 mmol/L (21-33) 04/01/18 05:20 Anion Gap 14 (10-20) 04/01/18 05:20 BUN 5 mg/dL (7-21) L 04/01/18 05:20 Creatinine 0.6 mg/dl (0.8-1.5) L 04/01/18 05:20 Est GFR ( Amer) > 60 04/01/18 05:20 Est GFR (Non-Af Amer) > 60 04/01/18 05:20 POC Glucose (mg/dL) 177 mg/dL (65-110) H 04/01/18 16:04 Random Glucose 116 mg/dL (70-110) H 04/01/18 05:20 Hemoglobin A1c 6.3 % (4.2-6.5) 03/31/18 06:00 Lactic Acid 2.4 mmol/L (0.7-2.1) H 03/31/18 13:50 Calcium 10.7 mg/dL (8.4-10.5) H 04/01/18 05:20 Phosphorus 3.1 mg/dL (2.5-4.5) 04/01/18 05:20 Magnesium 2.0 mg/dL (1.7-2.2) 04/01/18 05:20 Total Bilirubin 0.8 mg/dL (0.2-1.3) 04/01/18 05:20 AST 30 U/L (17-59) 04/01/18 05:20 ALT 30 U/L (7-56) 04/01/18 05:20 Alkaline Phosphatase 71 U/L (38-126) 04/01/18 05:20 Total Protein 7.0 g/dL (5.8-8.3) 04/01/18 05:20 Albumin 4.1 g/dL (3.0-4.8) 04/01/18 05:20 Globulin 2.9 gm/dL 04/01/18 05:20 Albumin/Globulin Ratio 1.4 (1.1-1.8) 04/01/18 05:20 Venous Blood Potassium 3.2 mmol/L (3.6-5.2) L 03/31/18 01:40 Alcohol, Quantitative 394 mg/dL (0-10) H* 03/30/18 16:10 - Hospital Course Hospital Course: Zack Burnett DO PGY-1, Oncologist Medicine Discharge Summary 53M, hx EtOH abuse and HTN (non-compliant with home meds) was brought by EMS to the emergency department for public intoxication. Patient was in intoxicated mental state during interview. He was cooperative but gave very short answers. He admitted to binge-drinking every 2 weeks, or more frequently if stressful at work. 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 He was able to bear weight and walk to ED bathroom without assistance. He denied hx fall, weakness, numbness, CP, dizziness. Per ED record , of patient reported that pt is a chronic alcoholic and has been binge drinking, has a hx of htn and high blood sugar. His RITA was 394 at 5pm on day of admission. Patient was hypertensive in 150s systolic and tachycardic of 110s at 6pm in the ED. CIWA score approx 10. He was given Ativan 2mg x 1 and Geodon 10 IM x 1. His CBC was unremarkable. Lactate was 3.7. Na 152. Pt was admitted for EtOH withdrawal and placed on CIWA protocol. Pt's bp was also elevated inpt likely 2/2 to withdrawal symptoms and non-compliance with taking home lisinopril. Pt was discharged on lisinopril 20 mg daily, and metoprolol 25 mg bid was added for further control due to elevated diastolic pressures during admssion. Pt was advised to abstain from alcohol, and was given resources for support groups including AA in his community by social work. Ortho (Dr. Mg) was consulted for pt due to R knee pain, R knee XR demonstrated prepatellar bursitis, Ortho recommended Discharge Exam - Head Exam Head Exam: ATRAUMATIC Discharge Plan - Discharge Medications Prescriptions: Folic Acid 1 mg PO DAILY #14 tab Lisinopril [Zestril] 20 mg PO DAILY #14 tab Metoprolol Tartrate 25 mg PO BID #28 tablet Multivitamin [Multi-Vitamin Daily] 1 each PO DAILY #14 tablet Thiamine [Vitamin B1 Tab] 50 mg PO DAILY #14 tab - Follow Up Plan Condition: STABLE Disposition: HOME/ ROUTINE Instructions: Prepatellar Bursitis (DC), Alcohol Withdrawal, Alcohol Abuse and Alcoholism (DC), Prepatellar Bursitis Exercises Additional Instructions: Please follow-up with your primary care physician within 1 week of discharge. Please follow-up with Ortho (Dr. Mg) for knee pain within 1-2 weeks of discharge. Please take medications as prescribed. Please abstain from using alcohol. Note: new medications for blood pressure including lisinopril and metoprolol. Please take blood pressure daily at home and keep a diary of blood pressure readings for your PCP. Please adhere to diabetic diet. Should symptoms recur or worsen, please go to your PCP's office or report to your nearest emergency department. Referrals: Gwendolyn Mg MD [Staff Provider] - Nan Ferris MD [Primary Care Provider] -
[2018-04-02] MEDS ORDERED: Multivitamin Therapeutic Tab PO SCH (10:00)
== END 2018-04-01 17:31 | disposition home or self-care (01) | DRG 751 ==
LOC: ED 13:27 → ERH 23:01 → 2RNO 03-31 00:32
PROVIDERS: ADMIT Internal Medicine; ATTEND Internal Medicine
DX: F10.239 Alcohol dependence with withdrawal, unspecified (principal); F10.229 Alcohol dependence with intoxication, unspecified; F17.210 Nicotine dependence, cigarettes, uncomplicated; M70.41 Prepatellar bursitis, right knee; I10 Essential (primary) hypertension; Y90.8 Blood alcohol level of 240 mg/100 ml or more; Z83.3 Family history of diabetes mellitus; Z82.49 Family history of ischemic heart disease and other diseases of the circulatory system; Z91.81 History of falling; Z79.899 Other long term (current) drug therapy; Z91.14 Patient's other noncompliance with medication regimen